=== PATIENT | male | born 1960 | race Caucasian/White ===

== ENCOUNTER 2018-05-23 12:44 | Inpatient (IN) | payer BC ==
[~2018-05-23] VITALS: Ht 180.3 cm; Wt 189.6 kg
[2018-05-23 13:17] LABS: BASOPHILS % 0.4 % (0.0-1.0); EOSINOPHILS # (AUTO) 0.1 (0.0-0.4); EOSINOPHILS % 0.7 % (0.0-6.0); HEMOGLOBIN 14.1 g/dL (14.0-18.0); LYMPHOCYTES # (AUTO) 1.6 (1.0-3.2); LYMPHOCYTES % 21.1 % (18.0-39.1); MEAN CORPUSCULAR HEMOGLOBIN 32.1 pg (28-32); MEAN CORPUSCULAR HGB CONC 33.6 g/dL (31-35); MEAN CORPUSCULAR VOLUME 95.7 fL (81-99); MONOCYTES # (AUTO) 0.5 (0.2-0.8); MONOCYTES % 6.4 % (4.4-11.3); NEUTROPHILS # (AUTO) 5.4 (2.1-6.9); NEUTROPHILS % 71.1 % (38.7-80.0); PLATELET COUNT 217 x10e3/uL (140-360); RED BLOOD COUNT 4.39 x10e6/uL (4.3-5.7); RED CELL DISTRIBUTION WIDTH 13.8 % (11.7-14.4)
[2018-05-23 13:19] LABS: BILIRUBIN,URINE NEGATIVE (NEGATIVE); CLARITY,URINE SL CLOUDY (CLEAR); COLOR,URINE YELLOW (YELLOW); KETONES,URINE NEGATIVE (NEGATIVE); LEUKOCYTE ESTERASE ,URINE NEGATIVE (NEGATIVE); NITRITE,URINE NEGATIVE (NEGATIVE); PROTEIN,URINE DIPSTICK TRACE (NEGATIVE); URINE UROBILINOGEN 0.2 mg/dL (0.2 - 1)
[2018-05-23] MEDS ORDERED: MORPHINE SULFATE INJ 4 MG/ML INJ IV STA (13:27)
[2018-05-23] MEDS ORDERED: ONDANSETRON HCL INJ 2 MG/ML VIAL IV STA (13:27)
[2018-05-23 13:30] LABS: AMORPHOUS SEDIMENT,URINE FEW (FEW); BACTERIA,URINE FEW /HPF; EPITHELIAL CELLS,URINE FEW /LPF; MUCUS,URINE MANY (RARE); RBC,URINE 0-5 /HPF (0-5); WBC,URINE (MAN) 0-5 /HPF (0-5)
[2018-05-23 13:35] LABS: BLOOD UREA NITROGEN 15 mg/dL (7-26); BUN/CREATININE RATIO 13 (6-25); CALCIUM 8.9 mg/dL (8.4-10.2); CARBON DIOXIDE 27 mmol/L (22-29); CHLORIDE 103 mmol/L (98-107); CREATININE, SERUM 1.19 mg/dL (0.72-1.25); EST GLOMERULAR FILTRATION RATE > 60 ML/MIN (60-); GLUCOSE 105 mg/dL (74-118); SODIUM 138 mmol/L (136-145)
[2018-05-23] MEDS ORDERED: SODIUM CHLORIDE 0.9% 1000ML 1,000 ML IV STA (14:31)
[2018-05-23] MEDS ORDERED: ONDANSETRON HCL INJ 2 MG/ML VIAL IV PRN ×2 (14:45→18:00)
[2018-05-23] MEDS ORDERED: DIPHENHYDRAMINE HCL INJ 50 MG/ML VIAL IV PRN (14:45)
[2018-05-23] MEDS ORDERED: MORPHINE SULFATE INJ 4 MG/ML INJ IV PRN (14:45)
[2018-05-23] MEDS ORDERED: PROMETHAZINE 12.5MG/ NACL 0.9% 12.5 MG/50 ML BAG IV PRN (14:45)
[2018-05-23] MEDS ORDERED: KETOROLAC TROMETHAMINE 30 MG/ML VIAL IV PRN (14:45)
--- NOTE | 2018-05-23 15:53 | Diagnostic Imaging Report ---
PROCEDURE:X-RAY ABDOMEN - KUB COMPARISON:Outside CT dated 05/23/18 INDICATIONS:DX KIDNEY STONE RIGHT LOWER REGION TODAY; PAIN IN RIGHT LOWER FLANK AREA FINDINGS: Limited by body habitus. There is a non-obstructed bowel-gas pattern. There are no calcifications projected over the renal shadows. There are no acute osseous abnormalities. The lung bases are clear. CONCLUSION: No definite evidence of nephrolithiasis, considering limitations of the study. Nonobstructive bowel gas pattern. Dictated by: Elvis Herr M.D. on 05/23/2018 at 15:58 Electronically approved by: Elvis Herr M.D. on 05/23/2018 at 15:58
[2018-05-23] MEDS ORDERED: MORPHINE SULFATE 2 MG/ML SYR IV PRN (18:00)
[2018-05-23] MEDS ORDERED: CEFTRIAXONE SOD 1 GM VIAL IV ONE (18:00)
[2018-05-23] MEDS: FAMOTIDINE 20 MG/2 ML VIAL IV SCH (18:02)
[2018-05-23] MEDS: SODIUM CHLORIDE 0.9% 1000ML 1,000 ML IV SCH (18:27)
[2018-05-23] MEDS: LACTATED RINGER'S 1,000 ML IV SCH ×2 (19:22→22:25)
[2018-05-23 20:30] VITALS: BP 139/76
--- NOTE | 2018-05-23 20:32 | Consultation ---
DATE OF CONSULTATION: May 23, 2018 UROLOGY CONSULTATION REASON FOR CONSULTATION: Renal colic. HISTORY OF PRESENT ILLNESS: Juanito Velasquez is a 57-year-old man with no previous urological history. He denies hematuria, dysuria, urinary tract infection, urolithiasis. Denies any urinary incontinence. The patient has severe right lower quadrant and back pains, as well as nausea and vomiting. Reported to the emergency room in [place], was found to have an obstructing right distal ureterolithiasis and urological consultation was recommended for the patient. The patient lives 4 hours away in [place], [place] and he is concerned about making a long distance drive with his family while having renal colic. He was told to report to the hospital here, where we can intervene for his stones. The patient has been requiring ongoing narcotics. The urine has been strained and no stones has passed yet. PAST MEDICAL AND SURGICAL HISTORY 1. Status post back surgery. 2. Status post appendectomy. 3. Obesity. 4. Hypercholesterolemia. 5. Hypertension. 6. History of what sounds like fistula in ano repair remotely in the past. ALLERGIES: NONE KNOWN. CURRENT MEDICATIONS: Please refer to the MAR. SOCIAL HISTORY: The patient denies smoking, alcohol, drug use. 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 FAMILY HISTORY: Noncontributory to the active urological problems. REVIEW OF SYSTEMS: Consistent with above history of present illness and past medical history, otherwise negative for all systems. PHYSICAL EXAMINATION GENERAL: A relatively healthy-appearing 57-year-old man, lying in bed, in no apparent distress. VITAL SIGNS: He is currently afebrile. His vital signs are currently stable. ABDOMEN: Soft, nondistended. It is tender in the right lower quadrant with right costovertebral angle tenderness. Kidneys are not palpable, without hepatosplenomegaly. No obvious evidence of hernia. GENITOURINARY: Testes descended bilaterally. Testes and epididymides bilaterally palpably normal. The patient has normal male phallus with normal meatus without any lesion. Digital rectal examination is deferred at the present time. For the remaining physical examination systems and findings, please refer to the admission history and physical on the chart, as well as the [facility]. LABORATORY STUDIES: The patient's white blood cell count is 7640, hemoglobin 14.1, platelets 217,000. The patient's creatinine is 1.19. His urinalysis is significant for 0-5 RBCs, 0-5 WBCs, and has high specific gravity of 1.030. KUB was done, it revealed no definitive nephrolithiasis. However, the study is limited due to patient's large body habitus. CT scanning that was done at an outside emergency room revealed a 4-mm distal right ureteral stone with hydroureteronephrosis. ASSESSMENT 1. Right renal colic. 2. Nausea and vomiting. 3. Right ureterolithiasis. 4. Right hydroureteronephrosis. 5. Morbid obesity. PLAN 1. IV analgesic. 2. IV hydration. 3. IV antibiotics. 4. Straining of the urine has been ordered. 5. We will prepare the patient for endoscopic intervention for his actively hurting stone, so that he may travel. Should the patient pass the stone, will consider cancelling the case. Thank you very much for involving us in the care of your patient. Will be happy to follow him along with you, as well as an outpatient. Job#: [id number] CQ
[2018-05-23] MEDS ORDERED: SOTALOL80 MG PO (22:03)
[2018-05-23] MEDS ORDERED: LOSARTAN POTAS100 MG PO (22:03)
[2018-05-23] MEDS ORDERED: LEVOTHYROXINE112 MCG PO (22:03)
[2018-05-23] MEDS ORDERED: SERTRALINE HCL100 MG PO (22:03)
[2018-05-23] MEDS ORDERED: METOPROLOL TART50 MG PO (22:03)
[2018-05-23] MEDS ORDERED: ASPIRIN81 MG PO (22:03)
[2018-05-23] MEDS ORDERED: MONTELUKAST SOD10 MG PO (22:03)
[2018-05-23] MEDS: MORPHINE SULFATE INJ 4 MG/ML INJ IV PRN (22:25)
[2018-05-24] VITALS (8 sets, daily range): BP systolic 120–147; BP diastolic 66–69
[2018-05-24] MEDS: SODIUM CHLORIDE 0.9% 1000ML 1,000 ML IV SCH ×3 (01:51→16:56)
[2018-05-24 05:23] LABS: BASOPHILS % 0.4 % (0.0-1.0); EOSINOPHILS # (AUTO) 0.1 (0.0-0.4); EOSINOPHILS % 1.6 % (0.0-6.0); HEMATOCRIT 37.9 % (38.2-49.6); HEMOGLOBIN 12.5 g/dL (14.0-18.0); LYMPHOCYTES # (AUTO) 1.7 (1.0-3.2); LYMPHOCYTES % 25.6 % (18.0-39.1); MEAN CORPUSCULAR HEMOGLOBIN 32.1 pg (28-32); MEAN CORPUSCULAR VOLUME 97.2 fL (81-99); MONOCYTES # (AUTO) 0.6 (0.2-0.8); MONOCYTES % 9.3 % (4.4-11.3); NEUTROPHILS # (AUTO) 4.3 (2.1-6.9); NEUTROPHILS % 62.7 % (38.7-80.0); PLATELET COUNT 194 x10e3/uL (140-360); RED CELL DISTRIBUTION WIDTH 14.2 % (11.7-14.4)
[2018-05-24 05:46] LABS: ANION GAP 12.8 mmol/L (8-16); CALCIUM 8.5 mg/dL (8.4-10.2); CREATININE, SERUM 1.45 mg/dL (0.72-1.25); POTASSIUM 4.8 mmol/L (3.5-5.1)
[2018-05-24] MEDS: FAMOTIDINE 20 MG/2 ML VIAL IV SCH ×2 (07:45→16:56)
[2018-05-24] MEDS ORDERED: IOPAMIDOL 300MG/ML 50ML INFUS..BTL IV ONE (08:42)
[2018-05-24] MEDS ORDERED: HYDROCODONE/APAP 5MG-325MG TAB PO PRN (09:30)
[2018-05-24] MEDS ORDERED: HYDRALAZINE HCL 20 MG/ML VIAL IV PRN (09:30)
[2018-05-24] MEDS ORDERED: ACETAMINOPHEN 325 MG TAB PO PRN (09:30)
[2018-05-24] MEDS ORDERED: FENTANYL CITRATE/PF 100MCG/2 ML INJ ONE ×2 (10:07→15:56)
[2018-05-24] MEDS ORDERED: MIDAZOLAM HCL 2 MG/2 ML VIAL ONE (15:56)
[2018-05-24] MEDS: MORPHINE SULFATE INJ 4 MG/ML INJ IV PRN (16:00)
[2018-05-24] MEDS: SOTALOL HCL 80 MG TAB PO SCH (16:56)
[2018-05-24] MEDS: METOPROLOL TARTRATE 50 MG TAB PO SCH (16:56)
[2018-05-24] MEDS ORDERED: GLYCOPYRROLATE INJ 1MG/ 5 ML SYR ONE (18:17)
[2018-05-24] MEDS ORDERED: PROPOFOL IV EMULSION 10 MG/ML 20 ML VIAL ONE (18:17)
[2018-05-24] MEDS ORDERED: ROCURONIUM BROMIDE 10 MG/ML 5ML VIAL ONE (18:17)
[2018-05-24] MEDS ORDERED: SUCCINYLCHOLINE 200 MG/10 ML SYR ONE (18:17)
[2018-05-24] MEDS ORDERED: DESFLURANE 240 ML BTL INH ONE (18:17)
[2018-05-24] MEDS ORDERED: ONDANSETRON HCL INJ 2 MG/ML VIAL ONE (18:17)
[2018-05-24] MEDS ORDERED: DEXAMETHASONE SOD PHOS INJ 4 MG/ML VIAL ONE (18:17)
[2018-05-24] MEDS ORDERED: VASOPRESSIN INJ 20 UNIT/ML VIAL ONE (18:17)
[2018-05-24] MEDS ORDERED: LIDOCAINE HCL 2% LOCAL INJ 5 ML SDV VIAL INJ ONE (18:17)
[2018-05-24] MEDS ORDERED: EPHEDRINE SULFATE INJ 50 MG/10 ML SYR ONE (18:17)
[2018-05-24] MEDS ORDERED: SERTRALINE HCL 100 MG TAB PO SCH (21:00)
[2018-05-24] MEDS ORDERED: MONTELUKAST SODIUM 10 MG TAB PO SCH (21:00)
[2018-05-25] VITALS: BP 139/58
[2018-05-25] MEDS: SODIUM CHLORIDE 0.9% 1000ML 1,000 ML IV SCH ×2 (01:07→07:07)
[2018-05-25 04:00] VITALS: BP 158/75
[2018-05-25 04:36] LABS: BASOPHILS % 0.1 % (0.0-1.0); EOSINOPHILS % 0.4 % (0.0-6.0); HEMOGLOBIN 12.7 g/dL (14.0-18.0); LYMPHOCYTES # (AUTO) 1.7 (1.0-3.2); MEAN CORPUSCULAR HEMOGLOBIN 31.8 pg (28-32); MEAN CORPUSCULAR HGB CONC 32.6 g/dL (31-35); MEAN CORPUSCULAR VOLUME 97.7 fL (81-99); MONOCYTES # (AUTO) 0.6 (0.2-0.8); MONOCYTES % 8.4 % (4.4-11.3); NEUTROPHILS # (AUTO) 4.9 (2.1-6.9); NEUTROPHILS % 67.8 % (38.7-80.0); PLATELET COUNT 204 x10e3/uL (140-360); RED BLOOD COUNT 3.99 x10e6/uL (4.3-5.7); RED CELL DISTRIBUTION WIDTH 14.2 % (11.7-14.4)
[2018-05-25 05:01] LABS: ANION GAP 11.7 mmol/L (8-16); BLOOD UREA NITROGEN 16 mg/dL (7-26); BUN/CREATININE RATIO 14 (6-25); CALCIUM 8.8 mg/dL (8.4-10.2); CARBON DIOXIDE 27 mmol/L (22-29); CHLORIDE 105 mmol/L (98-107); CREATININE, SERUM 1.15 mg/dL (0.72-1.25); EST GLOMERULAR FILTRATION RATE > 60 ML/MIN (60-); GLUCOSE 106 mg/dL (74-118); POTASSIUM 4.7 mmol/L (3.5-5.1); SODIUM 139 mmol/L (136-145)
[2018-05-25] MEDS ORDERED: LEVOTHYROXINE SODIUM 75 MCG TAB PO SCH ×2 (06:00→21:00)
[2018-05-25 07:05] VITALS: BP 155/72
[2018-05-25 08:01] VITALS: BP 155/72
[2018-05-25] MEDS ORDERED: LOSARTAN POTASSIUM 100 MG TAB PO SCH (09:00)
[2018-05-25] MEDS ORDERED: ASPIRIN 81 MG CHEW TAB PO SCH (09:00)
[2018-05-25] MEDS ORDERED: LEVOTHYROXINE SODIUM 112 MCG TAB PO SCH (09:00)
[2018-05-25] MEDS: METOPROLOL TARTRATE 50 MG TAB PO SCH (09:00)
[2018-05-25] MEDS ORDERED: SERTRALINE HCL 100 MG TAB PO SCH ×2 (09:00→21:00)
[2018-05-25] MEDS ORDERED: MONTELUKAST SODIUM 10 MG TAB PO SCH (09:00)
[2018-05-25] MEDS: SOTALOL HCL 80 MG TAB PO SCH (09:00)
[2018-05-25] MEDS: FAMOTIDINE 20 MG/2 ML VIAL IV SCH (09:00)
[2018-05-25 12:16] VITALS: BP 132/72
[2018-05-25] MEDS ORDERED: TYLENOL WITH C1 EACH PO (12:40)
[2018-05-25] MEDS ORDERED: LEVAQUIN500 MG PO (12:41)
[2018-05-25] MEDS ORDERED: FLOMAX0.4 MG PO (12:43)
--- NOTE | 2018-05-25 19:53 | Discharge Summary ---
ADMISSION DIAGNOSES 1. Right ureterolithiasis. 2. Acute kidney injury. 3. Hypertension. 4. Atrial fibrillation. 5. Hypothyroidism. 6. Seasonal allergies. 7. Morbid obesity. DISCHARGE DIAGNOSES 1. Right ureterolithiasis. 2. Acute kidney injury. 3. Hypertension. 4. Atrial fibrillation. 5. Hypothyroidism. 6. Seasonal allergies. 7. Morbid obesity. HISTORY: The patient has a history of hypertension, hypothyroidism, depression, seasonal allergies, atrial fibrillation, morbid obesity. Surgical history of appendectomy and back surgery. HOSPITAL COURSE: A 57-year-old male who complains of right flank pain described as sharp that started 3 days ago. Pain worsens with movement and walking. Pain improved with pain medications. The patient denies nausea, vomiting, diarrhea and fever. He also has associated dysuria. On admission urology was consulted. The patient was started on IV pain control and urine was strained. Since the patient did not pass the stone, he went for a retrograde cystoscopy with ureteroscopy and lithotripsy with a right stent placement. The patient tolerated the procedure well. The patient's acute kidney injury resolved prior to discharge on IV fluids. He will resume home medications and will be started on Levaquin, Flomax and Tylenol No. 3 per urology request. He will follow up in one month for TURP and removal of the stent. The patient and agree to plan and understand discharge instructions and followup. Vital signs stable. The patient is afebrile. Dictated by: Edith Packer NP LEANDRA FELIZ MD Job#: [id number]
== END 2018-05-25 12:55 | disposition home or self-care (01) | DRG 669 ==
LOC: ER 12:44 → ERHOLD 17:51 → IMCU 19:40 → MED/SURG3 05-24 11:30 → OBSVTOIN 05-24 12:44
PROVIDERS: ADMIT Internal Medicine; ATTEND Internal Medicine
PROC: 0TC68ZZ Extirpation of Matter from Right Ureter, Via Natural or Artificial Opening Endoscopic (ICD-10-PCS; 2018-05-24)
PROC: 0T768DZ Dilation of Right Ureter with Intraluminal Device, Via Natural or Artificial Opening Endoscopic (ICD-10-PCS; 2018-05-24)
PROC: 0TC78ZZ Extirpation of Matter from Left Ureter, Via Natural or Artificial Opening Endoscopic (ICD-10-PCS; principal; 2018-05-24 08:30)
DX: N13.2 Hydronephrosis with renal and ureteral calculous obstruction (principal); N20.1 Calculus of ureter; Z68.43 Body mass index [BMI] 50.0-59.9, adult; N17.9 Acute kidney failure, unspecified; I10 Essential (primary) hypertension; I48.91 Unspecified atrial fibrillation; E03.9 Hypothyroidism, unspecified; J30.2 Other seasonal allergic rhinitis; E66.01 Morbid (severe) obesity due to excess calories; G47.33 Obstructive sleep apnea (adult) (pediatric)
CPT/HCPCS: 36415; 74018; 74420; 80048; 81001; 82948; 83970; 84550; 85025; 88300; 96361; 99284; C2617; G0378; J0696; J1100; J2001; J2250; J2270; J2405; J7030; J7120

== ENCOUNTER 2018-07-08 10:40 | Inpatient (IN) | payer BC ==
[2018-07-07 13:23] LABS: BASOPHILS % 0.3 % (0.0-1.0); EOSINOPHILS # (AUTO) 0.1 (0.0-0.4); EOSINOPHILS % 2.1 % (0.0-6.0); HEMATOCRIT 41.7 % (38.2-49.6); HEMOGLOBIN 13.5 g/dL (14.0-18.0); LYMPHOCYTES # (AUTO) 2.2 (1.0-3.2); LYMPHOCYTES % 37.8 % (18.0-39.1); MEAN CORPUSCULAR HEMOGLOBIN 31.9 pg (28-32); MEAN CORPUSCULAR HGB CONC 32.4 g/dL (31-35); MEAN CORPUSCULAR VOLUME 98.6 fL (81-99); MONOCYTES # (AUTO) 0.5 (0.2-0.8); MONOCYTES % 8.6 % (4.4-11.3); NEUTROPHILS # (AUTO) 2.9 (2.1-6.9); NEUTROPHILS % 50.9 % (38.7-80.0); PLATELET COUNT 196 x10e3/uL (140-360); RED BLOOD COUNT 4.23 x10e6/uL (4.3-5.7); RED CELL DISTRIBUTION WIDTH 13.4 % (11.7-14.4)
[2018-07-07 14:27] LABS: ALANINE AMINOTRANSFERASE 38 IU/L (0-55); ALBUMIN 3.8 g/dL (3.5-5.0); ALKALINE PHOSPHATASE 89 IU/L (40-150); ANION GAP 13.4 mmol/L (8-16); BLOOD UREA NITROGEN 14 mg/dL (7-26); BUN/CREATININE RATIO 16 (6-25); CARBON DIOXIDE 30 mmol/L (22-29); CHLORIDE 101 mmol/L (98-107); CREATININE, SERUM 0.87 mg/dL (0.72-1.25); EST GLOMERULAR FILTRATION RATE > 60 ML/MIN (60-); GLUCOSE 100 mg/dL (74-118); POTASSIUM 4.4 mmol/L (3.5-5.1); SODIUM 140 mmol/L (136-145)
[~2018-07-08] VITALS: Ht 180.3 cm; Wt 182.4 kg
[~2018-07-08 10:40] MED LIST: ASPIRIN81 MG PO; FLOMAX0.4 MG PO; LEVAQUIN500 MG PO; LEVOTHYROXINE112 MCG PO; LOSARTAN POTAS100 MG PO; METOPROLOL TART50 MG PO; MONTELUKAST SOD10 MG PO; SERTRALINE HCL100 MG PO; SOTALOL80 MG PO; TYLENOL WITH C1 EACH PO
[2018-07-08] MEDS ORDERED: CEFTRIAXONE SOD 1 GM VIAL ONE (11:40)
[2018-07-08] MEDS ORDERED: DEXAMETHASONE SOD PHOS INJ 4 MG/ML VIAL ONE (14:20)
[2018-07-08] MEDS ORDERED: DESFLURANE 240 ML BTL INH ONE (14:20)
[2018-07-08] MEDS ORDERED: LIDOCAINE HCL 2% LOCAL INJ 5 ML SDV VIAL INJ ONE (14:20)
[2018-07-08] MEDS ORDERED: PROPOFOL IV EMULSION 10 MG/ML 20 ML VIAL ONE (14:20)
[2018-07-08] MEDS ORDERED: ONDANSETRON HCL INJ 2 MG/ML VIAL ONE (14:20)
[2018-07-08] MEDS ORDERED: ROCURONIUM BROMIDE 10 MG/ML 5ML VIAL ONE (14:20)
[2018-07-08] MEDS ORDERED: SUCCINYLCHOLINE 200 MG/10 ML SYR ONE (14:20)
[2018-07-08] MEDS: D5.45%NS/KCL 20MEQ 1,000 ML IV SCH ×2 (17:13→23:54)
[2018-07-08] MEDS ORDERED: ONDANSETRON HCL INJ 2 MG/ML VIAL IV PRN (17:15)
[2018-07-08] MEDS ORDERED: DIPHENHYDRAMINE HCL 25 MG CAP PO PRN (17:15)
[2018-07-08] MEDS ORDERED: NALOXONE HCL INJ 0.4 MG/ML AMP IV PRN (17:15)
[2018-07-08] MEDS ORDERED: FENTANYL CITRATE/PF 100MCG/2 ML INJ ONE (17:28)
--- NOTE | 2018-07-08 17:29 | Diagnostic Imaging Report ---
Retrograde pyelogram COMPARISON: None HISTORY: C-arm TECHNIQUE: Multiple abdominal spot radiographs from the procedure were made available for evaluation. RADIATION DOSE: Fluoroscopy Time: 0.08 min Dose (Kerma) Area Product: 159.2 cGycm2 Air Kerma (AK) value has been reviewed. It is below the limits set by the Radiation Protocol Committee (RPC) committee. DISCUSSION: Right ureteral stent in place. The proximal aspect appears to overlying the upper pole of the right kidney. The distal stent appears to overlying the urinary bladder. No contrast within the collecting system. IMPRESSION: Limited spot images from a fluoroscopic retrograde pyelogram as detailed above. Signed by: Dr. Devorah Christine M.D. on 07/08/2018 5:25 PM
[2018-07-08] MEDS: CEFTRIAXONE SOD 1 GM VIAL IV SCH (17:30)
[2018-07-08] MEDS ORDERED: MORPHINE SULFATE 1 MG/ML 30ML PCA ONE (18:08)
[2018-07-08] MEDS ORDERED: MORPHINE SULFATE 2 MG/ML SYR ONE (18:20)
[2018-07-08] MEDS: MORPHINE SULFATE 1 MG/ML 30ML PCA IV PRN (18:27)
[2018-07-08 20:39] VITALS: BP 142/71
[2018-07-08] MEDS: OXYBUTYNIN CHLORIDE 5 MG TAB PO SCH (21:29)
[2018-07-08 22:55] VITALS: BP 142/71
[2018-07-08 23:08] VITALS: BP 142/71
[2018-07-09] VITALS: BP 148/68
[2018-07-09] MEDS: MORPHINE SULFATE 1 MG/ML 30ML PCA IV PRN ×2 (02:20→14:50)
[2018-07-09 04:00] VITALS: BP 137/67
[2018-07-09 05:32] LABS: BASOPHILS % 0.1 % (0.0-1.0); HEMATOCRIT 39.2 % (38.2-49.6); HEMOGLOBIN 12.8 g/dL (14.0-18.0); LYMPHOCYTES # (AUTO) 1.3 (1.0-3.2); LYMPHOCYTES % 15.2 % (18.0-39.1); MEAN CORPUSCULAR HEMOGLOBIN 32.1 pg (28-32); MEAN CORPUSCULAR HGB CONC 32.7 g/dL (31-35); MEAN CORPUSCULAR VOLUME 98.2 fL (81-99); MONOCYTES # (AUTO) 0.4 (0.2-0.8); MONOCYTES % 4.7 % (4.4-11.3); NEUTROPHILS # (AUTO) 6.9 (2.1-6.9); NEUTROPHILS % 79.7 % (38.7-80.0); PLATELET COUNT 239 x10e3/uL (140-360); RED BLOOD COUNT 3.99 x10e6/uL (4.3-5.7); RED CELL DISTRIBUTION WIDTH 13.4 % (11.7-14.4)
[2018-07-09 05:49] LABS: ANION GAP 15.1 mmol/L (8-16); BLOOD UREA NITROGEN 14 mg/dL (7-26); BUN/CREATININE RATIO 15 (6-25); CALCIUM 9.2 mg/dL (8.4-10.2); CARBON DIOXIDE 27 mmol/L (22-29); CHLORIDE 100 mmol/L (98-107); CREATININE, SERUM 0.94 mg/dL (0.72-1.25); EST GLOMERULAR FILTRATION RATE > 60 ML/MIN (60-); GLUCOSE 148 mg/dL (74-118); POTASSIUM 5.1 mmol/L (3.5-5.1); SODIUM 137 mmol/L (136-145)
[2018-07-09] MEDS: CEFTRIAXONE SOD 1 GM VIAL IV SCH ×2 (05:55→17:51)
[2018-07-09] MEDS: OXYBUTYNIN CHLORIDE 5 MG TAB PO SCH ×3 (07:58→20:50)
[2018-07-09] MEDS: DOCUSATE SODIUM 100 MG CAP PO SCH ×2 (07:58→17:51)
[2018-07-09] MEDS: D5.45%NS/KCL 20MEQ 1,000 ML IV SCH (07:58)
[2018-07-09] MEDS ORDERED: SOTALOL HCL 80 MG TAB PO SCH (09:00)
[2018-07-09] MEDS: MONTELUKAST SODIUM 10 MG TAB PO SCH (10:17)
[2018-07-09] MEDS: SERTRALINE HCL 100 MG TAB PO SCH (10:17)
[2018-07-09] MEDS: FAMOTIDINE 20 MG TAB PO SCH ×2 (10:17→17:51)
[2018-07-09] MEDS: DEXTROSE 5%/0.45% SOD CHL 1,000 ML IV SCH ×2 (10:18→18:25)
[2018-07-09] MEDS: LOSARTAN POTASSIUM 100 MG TAB PO SCH (10:18)
[2018-07-09] MEDS: METOPROLOL TARTRATE 50 MG TAB PO SCH ×2 (10:18→17:00)
[2018-07-09 11:34] VITALS: BP 116/56
[2018-07-09 12:38] VITALS: BP 179/81
[2018-07-09] MEDS ORDERED: SOD POLYSTYRENE SULFONATE SUSP 15 GM/60 ML BTL PO ONE (13:30)
[2018-07-09] MEDS ORDERED: MAGNESIUM SULF 1GRAM/DEXTROSE 100 ML IV ONE (13:30)
--- NOTE | 2018-07-09 16:33 | History and Physical ---
DATE OF SERVICE: July 09, 2018 HISTORY OF PRESENT ILLNESS: Mr. Velasquez is a 57-year-old male that had a stent placed in the right urethra on July 08. He stated he was in [place]. Patient again developed a kidney stone on May 23, subsequently had the sent placed and had some relief of his signs and symptoms. Dr. Saldivar told him that he needed further work on his prostate. Therefore, he was admitted for this elective surgical procedure completed yesterday. He is seen postsurgically in the medical-surgical unit in room 100. PAST MEDICAL HISTORY: Obstructive sleep apnea with use of CPAP, morbid obesity, had a stress test in February 2018 which was normal, hypertension, hyperlipidemia, atrial fibrillation, low back pain, and hypothyroidism. PAST SURGICAL HISTORY: Twenty years ago, he had a lumbar fusion in 1997, appendectomy, and rectal fissure repair. SOCIAL HISTORY: Denies history of smoking or illicit drug use. He states he drinks about 5 beers per year. He lives with his . 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 PAST FAMILY HISTORY: His mother had diabetes, chronic myeloid leukemia and hypertension. His father from emphysema. He has significant history of heart problems in his family, especially noted both his grandfathers had heart problems. REVIEW OF SYSTEMS: Patient denies any chills or headache. He does have some sore throat with mild difficulty swallowing after the ET tube removal. He always has some shortness of breath due to his morbid obesity with pannus. He has dyspnea upon exertion. Admits to low back pain, scored 3/10 and tailbone pain. Denies any chest pain or palpitation. Denies nausea, vomiting, diarrhea, or constipation. His last bowel movement was yesterday morning. PHYSICAL EXAMINATION VITAL SIGNS: Temperature 96.5, heart rate 70, blood pressure 116/56, respirations 20, and oxygen saturation 96%. GENERAL: The patient is well-nourished, well-developed morbidly obese gentleman, in no apparent distress. HEENT: Pupils equal, round, and reactive to light. Extraocular eye movements are intact. Oropharynx is clear. Atraumatic, normocephalic. NECK: Supple. No lymphadenopathy, thyromegaly, or JVD noted. No carotid bruit. CARDIOVASCULAR: Atrial ablation, irregularly irregular. No murmur appreciated. LUNGS: Fair air entry bilaterally. Respirations even and unlabored. No wheezing, crackles, or rhonchi. Lung sounds clear to auscultation. ABDOMEN: Bowel sounds positive. Soft, nontender, morbidly obese with pannus. EXTREMITIES: No discoloration of the legs. No complaints of calf pain with general palpation. Range of motion within normal limits. INTEGUMENTARY: Warm and dry. NEUROLOGIC: GCS 15. Cranial nerves II through XII are intact. Alert and oriented x3, nonfocal. PSYCHIATRIC: Normal mood. No homicidal ideations or suicidal ideations. LABORATORY DATA: Sodium 137, potassium 5.1, chloride 100, CO2 of 27, BUN 14, creatinine 0.94, and glucose 148. WBC is 8.68, hemoglobin 12.8, hematocrit 39.2, platelets 239, and neutrophils 79.7. Total bilirubin 0.4, AST 23, ALT 38, alkaline phosphatase 89, magnesium 1.7, and calcium 9.2. Parathyroid hormone on July 07 was 33. Retrograde pyelogram was done on July 08, which showed right ureteral stent in place. ASSESSMENT AND PLAN 1. Benign prostatic hypertrophy, prostatism, status post cystoscopy, removal of right stent, transurethral resection of the prostate. Urology continues to follow. Per documentation, patient's Steel catheter was switched out due to clots and he is currently undergoing irrigation with hematuria noted in the bag. He is on metoprolol. Patient is receiving morphine for pain, Flomax continues and continue IV fluids. 2. Hyperkalemia, will ask that a dose of Kayexalate be given. 3. Hypomagnesemia, will ask that 1 gram of magnesium sulfate be given IV. 4. Atrial fibrillation, chronic. Continue home medications. 5. Hypertension. Continue antihypertensives. Blood pressure is controlled. 6. Obstructive sleep apnea. Use CPAP at night. Continue use of homes CPAP if available. 7. Hyperlipidemia. Monitor. 8. Hypothyroidism. Continue home dose levothyroxine. 9. Morbid obesity. Encourage low-glycemic index diet. 10. Chronic low back pain. Pain control. 11. Prophylaxis. Continue Pepcid and SCDs. DISPOSITION: Patient will likely be discharged in the morning if approved by urology. Continue Rocephin antibiotic and urethral irrigation as per urology service. DICTATED BY: Prashanth Garcia NP Job#: [id number] SILVERIO
[2018-07-09 17:46] VITALS: BP 143/77
[2018-07-09] MEDS: OYST-CAL-D 500MG TABLET PO SCH (17:51)
[2018-07-09 20:00] VITALS: BP 162/71
[2018-07-09] MEDS: TAMSULOSIN HCL 0.4 MG CAP PO SCH (20:50)
[2018-07-10] VITALS (8 sets, daily range): BP systolic 122–162; BP diastolic 59–77
[2018-07-10] MEDS: CEFTRIAXONE SOD 1 GM VIAL IV SCH ×2 (05:53→17:35)
[2018-07-10] MEDS: LEVOTHYROXINE SODIUM 75 MCG TAB PO SCH (05:53)
[2018-07-10] MEDS ORDERED: LACTULOSE SYRUP 20 GM/30 ML UDC PO ONE (06:15)
[2018-07-10 06:49] LABS: BASOPHILS % 0.3 % (0.0-1.0); EOSINOPHILS # (AUTO) 0.1 (0.0-0.4); EOSINOPHILS % 1.1 % (0.0-6.0); HEMATOCRIT 40.2 % (38.2-49.6); HEMOGLOBIN 12.9 g/dL (14.0-18.0); LYMPHOCYTES # (AUTO) 1.7 (1.0-3.2); MEAN CORPUSCULAR HEMOGLOBIN 32.3 pg (28-32); MEAN CORPUSCULAR HGB CONC 32.1 g/dL (31-35); MEAN CORPUSCULAR VOLUME 100.8 fL (81-99); MONOCYTES # (AUTO) 0.8 (0.2-0.8); MONOCYTES % 7.9 % (4.4-11.3); NEUTROPHILS # (AUTO) 6.9 (2.1-6.9); PLATELET COUNT 216 x10e3/uL (140-360); RED BLOOD COUNT 3.99 x10e6/uL (4.3-5.7); RED CELL DISTRIBUTION WIDTH 13.8 % (11.7-14.4)
[2018-07-10 07:01] LABS: ANION GAP 14.7 mmol/L (8-16); BLOOD UREA NITROGEN 13 mg/dL (7-26); BUN/CREATININE RATIO 15 (6-25); CALCIUM 8.9 mg/dL (8.4-10.2); CARBON DIOXIDE 25 mmol/L (22-29); CHLORIDE 96 mmol/L (98-107); CREATININE, SERUM 0.89 mg/dL (0.72-1.25); EST GLOMERULAR FILTRATION RATE > 60 ML/MIN (60-); GLUCOSE 122 mg/dL (74-118); POTASSIUM 4.7 mmol/L (3.5-5.1); SODIUM 131 mmol/L (136-145)
[2018-07-10 07:11] LABS: MAGNESIUM 2.1 MG/DL (1.3-2.1); PHOSPHORUS 3.6 MG/DL (2.3-4.7)
[2018-07-10] MEDS: OYST-CAL-D 500MG TABLET PO SCH ×2 (08:29→17:35)
[2018-07-10] MEDS: OXYBUTYNIN CHLORIDE 5 MG TAB PO SCH ×3 (08:29→21:08)
[2018-07-10] MEDS: METOPROLOL TARTRATE 50 MG TAB PO SCH ×2 (08:29→17:35)
[2018-07-10] MEDS: SERTRALINE HCL 100 MG TAB PO SCH (08:29)
[2018-07-10] MEDS: LOSARTAN POTASSIUM 100 MG TAB PO SCH (08:29)
[2018-07-10] MEDS: DOCUSATE SODIUM 100 MG CAP PO SCH ×2 (08:29→17:35)
[2018-07-10] MEDS: MONTELUKAST SODIUM 10 MG TAB PO SCH (08:29)
[2018-07-10] MEDS: FAMOTIDINE 20 MG TAB PO SCH ×2 (08:29→15:27)
[2018-07-10] MEDS ORDERED: MAGNESIUM OXIDE 400 MG TAB PO SCH (09:00)
[2018-07-10] MEDS ORDERED: MULTIVITAMINS/MINERALS TAB PO SCH (09:00)
[2018-07-10] MEDS ORDERED: ACETAMINOPHEN/CODEINE 300MG - 30MG TAB PO PRN (11:15)
[2018-07-10] MEDS ORDERED: BISACODYL 10 MG SUPP PR ONE (12:00)
[2018-07-10] MEDS: SODIUM CHLORIDE 0.9% 1000ML 1,000 ML IV SCH (17:35)
[2018-07-10] MEDS: TAMSULOSIN HCL 0.4 MG CAP PO SCH (21:08)
[2018-07-10] MEDS ORDERED: FAMOTIDINE 20 MG TAB PO ONE (23:00)
[2018-07-11] VITALS: BP 129/70
[2018-07-11 01:30] VITALS: BP 129/70
[2018-07-11 04:00] VITALS: BP 121/69
[2018-07-11] MEDS: CEFTRIAXONE SOD 1 GM VIAL IV SCH (04:41)
[2018-07-11 05:16] LABS: ANION GAP 11.9 mmol/L (8-16); BLOOD UREA NITROGEN 12 mg/dL (7-26); BUN/CREATININE RATIO 15 (6-25); CALCIUM 8.7 mg/dL (8.4-10.2); CARBON DIOXIDE 27 mmol/L (22-29); CHLORIDE 101 mmol/L (98-107); CREATININE, SERUM 0.82 mg/dL (0.72-1.25); EST GLOMERULAR FILTRATION RATE > 60 ML/MIN (60-); GLUCOSE 115 mg/dL (74-118); MAGNESIUM 1.7 MG/DL (1.3-2.1); POTASSIUM 3.9 mmol/L (3.5-5.1); SODIUM 136 mmol/L (136-145)
[2018-07-11] MEDS: LEVOTHYROXINE SODIUM 75 MCG TAB PO SCH (06:20)
[2018-07-11] MEDS ORDERED: ceftin PO (06:38)
[2018-07-11] MEDS ORDERED: TYLENOL WITH C1 EACH PO (06:38)
[2018-07-11] MEDS ORDERED: LEVOTHYROXINE SODIUM 25 MCG TABLET PO ONE (06:45)
[2018-07-11] MEDS ORDERED: LEVOTHYROXINE112 MCG PO (06:46)
[2018-07-11] MEDS: SODIUM CHLORIDE 0.9% 1000ML 1,000 ML IV SCH (07:13)
[2018-07-11 07:20] LABS: BASOPHILS % 0.4 % (0.0-1.0); EOSINOPHILS # (AUTO) 0.1 (0.0-0.4); EOSINOPHILS % 2.6 % (0.0-6.0); HEMATOCRIT 35.6 % (38.2-49.6); HEMOGLOBIN 11.6 g/dL (14.0-18.0); LYMPHOCYTES # (AUTO) 1.8 (1.0-3.2); LYMPHOCYTES % 32.7 % (18.0-39.1); MEAN CORPUSCULAR HGB CONC 32.6 g/dL (31-35); MEAN CORPUSCULAR VOLUME 98.3 fL (81-99); MONOCYTES # (AUTO) 0.5 (0.2-0.8); MONOCYTES % 9.7 % (4.4-11.3); NEUTROPHILS % 54.2 % (38.7-80.0); PLATELET COUNT 191 x10e3/uL (140-360); RED BLOOD COUNT 3.62 x10e6/uL (4.3-5.7); RED CELL DISTRIBUTION WIDTH 13.7 % (11.7-14.4)
[2018-07-11 08:47] VITALS: BP 135/82
[2018-07-11 09:14] VITALS: BP 135/82
--- NOTE | 2018-07-11 14:20 | Discharge Summary ---
ADMITTING DIAGNOSES 1. Benign prostatic hypertrophy. 2. Prostatism. 3. Status post cystoscopy, removal of right stent, transurethral resection of the prostate. 4. Hyperkalemia. 5. Hypomagnesemia. 6. Chronic atrial fibrillation. 7. Hypertension. 8. Obstructive sleep apnea. 9. Hyperlipidemia. 10. Hypothyroidism. 11. Morbid obesity. 12. Chronic low back pain. DISCHARGE DIAGNOSES 1. Benign prostatic hypertrophy. 2. Prostatism. 3. Status post cystoscopy, removal of right stent, transurethral resection of the prostate. 4. Hyperkalemia. 5. Hypomagnesemia. 6. Chronic atrial fibrillation. 7. Hypertension. 8. Obstructive sleep apnea. 9. Hyperlipidemia. 10. Hypothyroidism. 11. Morbid obesity. 12. Chronic low back pain. 13. Hyponatremia. 14. Elevated thyroid-stimulating hormone. HISTORY: The patient has a history of obstructive sleep apnea with use of CPAP, morbid obesity, stress test in February of 2018 which was normal, hypertension, hyperlipidemia, AFib, hypothyroidism, low back pain. Surgical history: The patient had a lumbar fusion in 1997, appendectomy and rectal fissure repair. HOSPITAL COURSE: This 57-year-old male had a stent placed in the right ureter on July 08 when he was in [place]. He developed a kidney stone prior to the stent. Per Dr. Saldivar he needed to have further workup on his prostate. Therefore, he was admitted for elective surgical procedures, which were cystoscopy, removal of the stent, and TURP. After these procedures, the patient came back to the floor with continuous bladder irrigation per urology. He was receiving LONG LINE TEAMSTER for pain and Flomax as well as fluid. The patient was weaned off of the LONG LINE TEAMSTER, and then a voiding trial began. The patient continued with the hematuria so he was kept an extra night per urology. On the day of discharge, the hematuria has improved. The patient complains of minimal dysuria. The patient's TSH was found to be elevated at 8.456. He takes 150 mcg of levothyroxine, which was increased to 175 mcg. He and his were educated in following up in 3 months for repeat TSH level. The patient will discharge home with Tylenol No. 3 and Ceftin for 7 days per urology as well as the new dose of levothyroxine. He will resume all other medications. He will follow up with primary care in 1 to [address] Saldivar as discussed. Vital signs are stable. Patient is afebrile. Patient and understand the discharge instructions and agree to the plan. Dictated by: Edith Packer NP LEANDRA FELIZ MD Job#: [id number]
--- NOTE | 2018-09-05 02:36 | Operative Report ---
DATE OF PROCEDURE: July 08, 2018 PREOPERATIVE DIAGNOSES: 1. Obstructive benign prostatic hypertrophy. 2. Ureterolithiasis. 3. Indwelling ureteral stent. POSTOPERATIVE DIAGNOSES: 1. Obstructive benign prostatic hypertrophy. 2. Ureterolithiasis. 3. Indwelling ureteral stent. OPERATIONS PERFORMED: 1. Cystourethroscopy with complicated removal of right indwelling ureteral stent (separate procedure performed for diagnosis of stent done with separate scope). 2. Right ureteroscopy with stone manipulation (separate procedure performed for the right ureterolithiasis). 3. Radiological services for supervision and interpretation of ureteroscopy. 4. Interpretation of retrograde ureteropyelography. 5. Supervision of fluoroscopy, no radiologist present. 6. Cystourethroscopy with staged transurethral resection of the prostate utilizing the plasma button electrode. ANESTHESIA: General. COMPLICATIONS: None. CLINICAL SUMMARY: Juanito Velasquez is a 57-year-old man who was vacationing from [place], [place] with his family where he had a kidney stone attack, presented to the hospital, underwent emergent ureteral stenting and as well as ureteroscopy. This procedure was made very difficult by the patient's massive median lobe as well as severely elevated median bar. This obstruction required advanced maneuvering to perform ureteroscopy including utilizing a cystoscope sheath which could barely be placed into the patient's bladder as a conduit to help the ureteroscope negotiate the ureter. The patient is brought to the operating room today to remove his stent, manage any residual urolithiasis as well as complete his transurethral resection of the prostate. He is aware of the risks of bleeding, infection, injury to adjacent structures, incontinence, impotence, retrograde ejaculation, need for additional procedures, and elected to proceed. OPERATIVE PROCEDURE IN DETAIL: Informed consent was verified. Mr. Velasquez was properly identified, taken to the operating room, and placed on the cystoscopy table in supine position. Anesthesia was uneventfully begun. The patient was then carefully and gently repositioned in the dorsal lithotomy position with all pressure points well padded. His genitalia were prepared and draped in usual sterile fashion. The 22.5-Liberian cystoscope sheath with the visual obturator in place was atraumatically inserted into patient's urethra. It was guided down the unremarkable urethra, past the normal sphincteric region, through the prostate bed, which exhibited an extremely elevated median bar and an enlarged median lobe. We entered the patient's bladder where we identified the stent. A guidewire was then placed alongside the stent and guided to the level of the patient's kidney. The stent was then grasped, completely removed and discarded. Flexile ureteroscope was then placed over the guidewire and guided to the level of the patient's kidney. Careful panendoscopy revealed Jv's plaques throughout. There were no suspicious mucosal lesions. There was very fine sand present. We irrigated this fine sand in order to loosen it from mucosa. It should be easily passable, but it is too small to grasp with a basket. We then carefully examined the ureter. It also exhibited some fine sand that we irrigated loose from the mucosa and manipulated it as such. No significantly sized stone fragments remained. Interpretation of retrograde ureteropyelography: Contrast was instilled in retrograde fashion via the ureteroscope. There was no significant hydronephrosis. There were no suspicious lesions. The opacification in the collecting system was significantly hindered by the patient's massive obesity. Resectoscope sheath was negotiated into the patient's bladder. We then utilized the plasma button electrode. First, we vaporized the entire median lobe and eliminated it from existence. Care was taken to avoid injuring the ureteral orifices. We then worked throughout inside of the prostate bed from the bladder neck down, but never down to, but never past the verumontanum and down to the surgical capsule throughout. Pinpoint electrocautery was utilized to achieve hemostasis. Once we completed our resection, this resectoscope was withdrawn. Steel catheter was placed. It was placed on continuous bladder irrigation, and the patient was uneventfully reversed from anesthesia and taken to recovery room in stable condition. There were no complications to the procedure. The patient tolerated the procedure well. Explicit postoperative instructions were given. Will proceed with routine postoperative care and of course ongoing urological followup. Job#: [id number]
== END 2018-07-11 09:15 | disposition home or self-care (01) | DRG 713 ==
LOC: OR 10:40 → MED/SURG 18:30
PROVIDERS: ADMIT Internal Medicine; ATTEND Internal Medicine
PROC: 0TC18ZZ Extirpation of Matter from Left Kidney, Via Natural or Artificial Opening Endoscopic (ICD-10-PCS; 2018-07-08)
PROC: 0TC78ZZ Extirpation of Matter from Left Ureter, Via Natural or Artificial Opening Endoscopic (ICD-10-PCS; 2018-07-08)
PROC: 0TP98DZ Removal of Intraluminal Device from Ureter, Via Natural or Artificial Opening Endoscopic (ICD-10-PCS; principal; 2018-07-08 13:00)
PROC: 0VB08ZZ Excision of Prostate, Via Natural or Artificial Opening Endoscopic (ICD-10-PCS; 2018-07-08 13:00)
DX: N40.1 Benign prostatic hyperplasia with lower urinary tract symptoms (principal); N13.30 Unspecified hydronephrosis; Z68.43 Body mass index [BMI] 50.0-59.9, adult; E87.1 Hypo-osmolality and hyponatremia; N20.2 Calculus of kidney with calculus of ureter; G47.33 Obstructive sleep apnea (adult) (pediatric); E66.01 Morbid (severe) obesity due to excess calories; I10 Essential (primary) hypertension; E78.5 Hyperlipidemia, unspecified; I48.91 Unspecified atrial fibrillation; E03.9 Hypothyroidism, unspecified; Z83.3 Family history of diabetes mellitus; Z80.6 Family history of leukemia; Z82.49 Family history of ischemic heart disease and other diseases of the circulatory system; E87.5 Hyperkalemia; E83.42 Hypomagnesemia; M54.9 Dorsalgia, unspecified; Z46.6 Encounter for fitting and adjustment of urinary device; I48.2 Chronic atrial fibrillation; K59.00 Constipation, unspecified; R94.6 Abnormal results of thyroid function studies; Z87.442 Personal history of urinary calculi
CPT/HCPCS: 36415; 74420; 80048; 80053; 83735; 83880; 83970; 84100; 84443; 84550; 85025; J0696; J1100; J2001; J2270; J2405; J3475; J7030